=== PATIENT | male | born 1930 | race Caucasian/White ===

== ENCOUNTER 2021-09-16 12:47 | Outpatient (CLI) | payer MEDICARE ==
[~2021-09-16 12:47] MED LIST: ISOVUE-370 76% 1 ML ONE
== END 2021-09-16 12:48 | disposition home or self-care (01) ==
LOC: BICCT 12:47
PROVIDERS: ATTEND Otolaryngology Plastic Surgery within the Head & Neck
DX: R49.0 Dysphonia (principal); M47.812 Spondylosis without myelopathy or radiculopathy, cervical region; M25.78 Osteophyte, vertebrae; J38.01 Paralysis of vocal cords and larynx, unilateral
CPT/HCPCS: 70491; 71270; 82565